=== PATIENT | male | born 1950 | race Caucasian/White ===

== ENCOUNTER 2016-12-29 11:25 | Day surgery (SDC) | payer MEDICARE, BC ==
[2016-12-29] MEDS ORDERED: Sodium Chloride 0.9% 1,000 ML IV SCH (12:00)
[2016-12-29] MEDS ORDERED: Bupivacaine 0.5% 50 ML MDV ONE (12:28)
[2016-12-29] MEDS ORDERED: Bacitracin Oint 1 GM U/D Packet ONE (12:28)
[2016-12-29] MEDS ORDERED: ceFAZolin 2 GM in Premix Bag 1 BAG IV ONE (12:30)
[2016-12-29] MEDS ORDERED: Lidocaine 1% with EPINEPHrine 1:200,000 30 ML SDV ONE (13:00)
[2016-12-29] MEDS ORDERED: Midazolam 1 MG/ML 2 ML SDV ONE (13:30)
[2016-12-29] MEDS ORDERED: fentaNYL 100 MCG/2 ML SDV ONE (13:30)
[2016-12-29] MEDS ORDERED: Propofol 200 MG/20 ML SDV ONE (13:30)
[2016-12-29 15:06] VITALS: BP 125/79
--- NOTE | 2017-01-01 07:44 | OR ---
DATE OF PROCEDURE: 12/29/2016 PROCEDURE: Incision and drainage hematoma, right ankle. COMPLICATIONS: None. 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 ANESTHESIA: MAC/local. INDICATIONS: This pleasant 66-year-old male, who has previously had hematoma evacuation, returns with a recurrent hematoma. PROCEDURE IN DETAIL: The patient was placed in supine position. The right ankle was readily identified. Skin was anesthetized with lidocaine after being prepped and draped. A single wanda was used. A small hematoma was evacuated and was thoroughly irrigated. Dressings were applied with quarter-inch iodoform packing. The patient tolerated the procedure well. Rashi George MD /[id number]
== END 2016-12-29 15:14 | disposition home or self-care (01) ==
LOC: JP.SDS 11:25
PROVIDERS: ATTEND Surgery
DX: S90.01XA Contusion of right ankle, initial encounter (principal); E78.5 Hyperlipidemia, unspecified
CPT/HCPCS: 10140; J0690; J2250; J2704; J3010; J7040

== ENCOUNTER 2020-01-29 06:52 | Day surgery (SDC) | payer BC, MEDICARE ==
[2020-01-29] MEDS ORDERED: Dextrose 5%-Lactated Ringers 1,000 ML IV SCH (07:15)
[2020-01-29] MEDS ORDERED: Propofol 200 MG/20 ML SDV ONE (07:24)
[2020-01-29] MEDS ORDERED: Midazolam 1 MG/ML 2 ML SDV ONE (07:24)
[2020-01-29] MEDS ORDERED: fentaNYL 100 MCG/2 ML SDV ONE (07:24)
[2020-01-29] MEDS ORDERED: Pantoprazole 40 MG Vial IVPUSH ONE (08:43)
[2020-01-29 10:19] VITALS: BP 112/70; PULSE 56
[2020-01-30 19:12] LABS: H. PYLORI BREATH TEST Negative (Negative)
--- NOTE | 2020-02-01 11:56 | OR ---
DATE OF PROCEDURE: 01/29/2020 SURGEON: Colt Daley MD PREOPERATIVE DIAGNOSIS: Recent episodes of epigastric pain, diarrhea, and black stools. POSTOPERATIVE DIAGNOSIS: History of epigastric pain and black stools with clinically evident duodenal ulcer. OPERATIVE PROCEDURE: Esophagogastroduodenoscopy with antral biopsies for CLOtest. ANESTHESIA: IV sedation. INDICATION FOR PROCEDURE: This is a 70-year-old with history of previous peptic ulcer disease, presenting with a history of around 01/15 having epigastric pain, nausea, some vomiting, and black stools. He restarted some of the omeprazole that he had on- hand already, but he has not been on that for some days so as to allow the current examination to be unhindered by masking of possible gastritis/duodenitis/peptic ulcer disease. Plan is to proceed with upper GI endoscopy with biopsies as indicated. Potential risks including bleeding and perforation were discussed, and the patient wishes to proceed. DETAILS OF PROCEDURE: The patient was taken to the operating room, placed in the left lateral decubitus position. IV sedation was administered, after which the upper GI endoscope was passed orally through the length of the esophagus into the stomach with retroflexion view of the fundus and thereafter through the pyloric channel and into the junction of 3rd and 4th portions of the duodenum. Findings included normal hypopharynx, larynx, upper esophageal sphincter, and esophageal body. At the EG junction, no significant hiatal hernia or inflammation was noted. Within the stomach, there was small amount of retained bile. There was some patchy redness in the antrum. As one entered the duodenum, there was more intense duodenitis present and an area of raised, quite edematous mucosa was seen, and which had roughly 1 cm ulcer in the proximal duodenum. This was covered with fibrinous exudate. No blood or bleeding was seen. Beyond that, the distal duodenal findings were unremarkable. At this point, biopsies were obtained from the antrum and sent for CLOtest for H pylori. Minimal bleeding from the biopsy site was seen and the procedure was then concluded. It would be likely that the patient's recent symptoms were related to the duodenal ulcer as it presently appears to be healing. We will give him Protonix 40 mg IV in the recovery room. He does have omeprazole 40 mg tablets at home and we will have him restart those later today, and he will be following up with Vincent Chen CNP, in roughly 2 weeks. We will run a H pylori breath test today as well to double the test for the H pylori issue. If the patient does not have an obvious cause for the recurrent ulcerative disease such as H pylori or NSAID use (there is no history of NSAID use on the present chart), then he would probably someone who, given the history, should be maintained on a low-dose PPI and her H2 marnie long-term. If the H pylori is positive, via the means of CLOtest for H pylori, we will contact the patient regarding the course of the antibiotic use. Otherwise, follow up with Vincent Chen CNP in [facility] in 2 weeks. Colt Daley MD /[id number]
== END 2020-01-29 10:28 | disposition home or self-care (01) ==
LOC: JP.SDS 06:52
PROVIDERS: ATTEND Surgery
DX: R10.13 Epigastric pain (principal); R19.7 Diarrhea, unspecified; R11.2 Nausea with vomiting, unspecified; K92.1 Melena; K21.9 Gastro-esophageal reflux disease without esophagitis; Z11.59 Encounter for screening for other viral diseases; Z87.11 Personal history of peptic ulcer disease; Z79.899 Other long term (current) drug therapy
CPT/HCPCS: 43239; 83013; 87081; C9113; J2250; J2704; J3010; J7121; U0002

== ENCOUNTER 2020-06-03 06:33 | Day surgery (SDC) | payer MEDICARE ==
[2020-06-03] MEDS ORDERED: Midazolam 1 MG/ML 2 ML SDV ONE (07:23)
[2020-06-03] MEDS ORDERED: Propofol 200 MG/20 ML SDV ONE (07:23)
[2020-06-03] MEDS ORDERED: fentaNYL 100 MCG/2 ML SDV ONE (07:23)
[2020-06-03] MEDS ORDERED: Sodium Chloride 0.9% 1,000 ML IV SCH (08:00)
[2020-06-03 09:21] VITALS: BP 130/93; PULSE 56
--- NOTE | 2020-06-04 07:19 | OR ---
DATE OF PROCEDURE: 06/03/2020 SURGEON: Rashi George MD PROCEDURE: Esophagogastroduodenoscopy. FINDINGS: 1. No old or new blood. 2. Small prominent area in the duodenum, mostly consistent with healing area of ulceration (biopsied using cold biopsy forceps for H pylori). 3. Inflammation at GE junction, biopsied in all 4 quadrants for reflux disease. COMPLICATIONS: None. 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 ANESTHESIA: MAC. PREOPERATIVE DIAGNOSIS: Epigastric pain/possible gastrointestinal bleed. POSTOPERATIVE DIAGNOSIS: Epigastric pain/possible gastrointestinal bleed. RISKS: Risks, benefits, alternatives, and limitations including, but not limited to infection, bleeding, and perforation were explained to the patient who wished to proceed. We also discussed false positives and false negatives. PROCEDURE IN DETAIL: The patient was placed in left lateral decubitus position. The EGD scope was introduced and advanced atraumatically to the second part of the duodenum. No evidence of duodenitis or active ulceration. Immediately within the duodenal bulb, there was a prominent area. This was biopsied using cold biopsy forceps. This was not actively bleeding. This was a raised area rather than an ulceration and could be consistent with a healing area of ulceration. Within the stomach itself, no evidence of gastritis. No ulceration. No blood. On retroflexion, no abnormalities. Inflammation at the GE junction was mild. This was biopsied in all 4 quadrants using cold biopsy forceps. No prominent areas concerning for Perez's esophagus. The remainder of esophagus was reviewed and inspected without abnormality. The patient tolerated the procedure well. Rashi George MD /[id number]
== END 2020-06-03 09:23 | disposition home or self-care (01) ==
LOC: JP.SDS 06:33
PROVIDERS: ATTEND Surgery
DX: R10.13 Epigastric pain (principal); E78.5 Hyperlipidemia, unspecified; K21.9 Gastro-esophageal reflux disease without esophagitis
CPT/HCPCS: 88305; J2250; J2704; J3010; J7030

== ENCOUNTER 2021-12-26 03:56 | Inpatient (IN) | payer MEDICARE ==
[2021-12-26] MEDS ORDERED: Sodium Chloride 0.9% 10 ML Syringe FLUSH PRN (04:11)
[2021-12-26] MEDS ORDERED: Ondansetron 4 MG/2 ML SDV IVPUSH ONE (04:11)
[2021-12-26] MEDS ORDERED: Sodium Chloride 0.9% 1,000 ML IV SCH ×2 (04:15→07:15)
[2021-12-26 04:40] LABS: ESTIMATED GFR 60 (>60)
[2021-12-26] MEDS ORDERED: HYDROmorphone 1 MG/ML Syringe IVPUSH ONE (05:00)
[2021-12-26] MEDS ORDERED: Iopamidol 612 MG/ML 100 ML Bottle IV STA (05:11)
[2021-12-26] MEDS ORDERED: Sodium Chloride 0.9% 50 ML IV STA (05:11)
[2021-12-26 05:47] LABS: CORONAVIRUS COVID-19 NAA NEGATIVE (NEGATIVE)
[2021-12-26] MEDS ORDERED: HYDROmorphone 0.5 MG/0.5 ML Syringe IVPUSH ONE (07:24)
[2021-12-26] MEDS ORDERED: Ondansetron 4 MG/2 ML SDV IV PRN (11:00)
[2021-12-26] MEDS ORDERED: Acetaminophen 325 MG Tab PO PRN (11:00)
[2021-12-26] MEDS ORDERED: LORazepam 2 MG/ML SDV IVPUSH PRN (11:00)
[2021-12-26] MEDS ORDERED: Ondansetron 4 MG Tab.DIS PO PRN (11:00)
[2021-12-26] MEDS ORDERED: Magnesium Hydroxide 400 MG/5 ML Susp 30 ML Cup PO PRN (11:00)
[2021-12-26] MEDS ORDERED: HYDROmorphone 0.5 MG/0.5 ML Syringe IVPUSH PRN (11:05)
[2021-12-26] MEDS: NS + KCl 20mEq/L 1,000 ML IV SCH ×2 (11:55→21:44)
[2021-12-26] MEDS ORDERED: SODIUM CHLORIDE 0.9% IV SCH (16:00)
[2021-12-26] MEDS ORDERED: LIDOCAINE 1% IV SCH (16:00)
[2021-12-26] MEDS ORDERED: POTASSIUM CHLORIDE RIDERS IV SCH (16:00)
[2021-12-26] MEDS: Pantoprazole 40 MG Vial IVPUSH SCH (21:44)
[2021-12-27 05:36] LABS: ESTIMATED GFR > 60 (>60)
[2021-12-27] MEDS: Pantoprazole 40 MG Vial IVPUSH SCH (21:56)
[2021-12-28 02:05] VITALS: PULSE 79
[2021-12-28 07:43] VITALS: BP 119/65
[2021-12-29 15:13] LABS: BABESIA MICROTI IGG <1:10 (Neg:<1:10); BABESIA MICROTI IGM <1:10 (Neg:<1:10)
[2021-12-30 14:13] LABS: HGE IGG TITER Negative (Neg:<1:64); HGE IGM TITER Negative (Neg:<1:20)
== END 2021-12-28 10:42 | disposition home or self-care (01) | DRG 389 ==
LOC: JP.ED 03:56 → JP.ICU 09:56
PROVIDERS: ADMIT Internal Medicine; ATTEND Internal Medicine
DX: K56.609 Unspecified intestinal obstruction, unspecified as to partial versus complete obstruction (principal); K56.50 Intestinal adhesions [bands], unspecified as to partial versus complete obstruction; E87.2 Acidosis; E87.6 Hypokalemia; N42.9 Disorder of prostate, unspecified; R11.14 Bilious vomiting; E78.00 Pure hypercholesterolemia, unspecified; K21.9 Gastro-esophageal reflux disease without esophagitis; Z20.822 Contact with and (suspected) exposure to COVID-19; F41.9 Anxiety disorder, unspecified; Z85.46 Personal history of malignant neoplasm of prostate; Z98.49 Cataract extraction status, unspecified eye; Z79.899 Other long term (current) drug therapy
CPT/HCPCS: 0241U; 36415; 74019; 74019-26; 74177; 80048; 80053; 83605; 84145; 85025; 85027; 86140; 86618; 86666; 86753; 96361; 96374; 96375; 96376; 99285; 99285-25; A9270-GY; C9113; J1170; J2405; J3480; J3490; J7030; Q9967